=== PATIENT | male | born 1960 | race Asian ===

== ENCOUNTER 2016-06-07 11:29 | Emergency (ER) | payer OTHER ==
[~2016-06-07] VITALS: Ht 170.2 cm; Wt 81.2 kg
[2016-06-07 14:58] VITALS: BP 144/88
== END 2016-06-07 14:58 | disposition home or self-care (01) ==
LOC: ED 11:29
DX: S00.03XA Contusion of scalp, initial encounter (principal); S20.222A Contusion of left back wall of thorax, initial encounter; S20.221A Contusion of right back wall of thorax, initial encounter; W31.89XA Contact with other specified machinery, initial encounter; Y93.89 Activity, other specified; Y99.8 Other external cause status; Y92.89 Other specified places as the place of occurrence of the external cause